=== PATIENT | female | born 1975 | race Caucasian/White ===

== ENCOUNTER → 2020-09-06 14:37 | Outpatient (BNVA) | payer OTHER, SELFPAY | PROVIDERS: Family Provider Family Medicine; PCP Family Medicine; Visit Provider Nurse Practitioner Women's Health | DX: N85.4 Malposition of uterus (principal); R10.2 Pelvic and perineal pain; G89.29 Other chronic pain; E66.01 Morbid (severe) obesity due to excess calories | CPT/HCPCS: 76830 ==

== ENCOUNTER 2020-09-26 08:46 | Outpatient (CLI) | payer OTHER, SELFPAY ==
--- NOTE | 2020-09-26 09:00 | MM_ITS ---
WS: [id number] BILATERAL SCREENING DIGITAL MAMMOGRAM WITH CAD HISTORY: Z12.39 - Encounter for other screening for malignant neoplasm of breast COMPARISON: 07/02/2017 Bilateral CC and MLO views submitted. Computer aided detection analyzed. Breast composition: The breasts are almost entirely fatty. No suspicious masses, microcalcifications or architectural distortion. Stable lobulated nodule since 2017 in the central inferior RIGHT breast. MM/[place] [id number] IMPRESSION: BI-RADS: 2-Benign FOLLOW UP: 1 Year Follow-up
== END 2020-09-26 08:47 | disposition home or self-care (01) ==
LOC: RADSHAW 08:49
PROVIDERS: Family Provider Family Medicine; PCP Family Medicine; Visit Provider Nurse Practitioner Women's Health
DX: Z12.31 Encounter for screening mammogram for malignant neoplasm of breast (principal)
CPT/HCPCS: 77067

== ENCOUNTER → 2021-10-15 09:10 | Outpatient (BNVA) | payer OTHER, SELFPAY | PROVIDERS: Family Provider Family Medicine; PCP Family Medicine; Visit Provider Nurse Practitioner Women's Health | DX: Z01.419 Encounter for gynecological examination (general) (routine) without abnormal findings (principal); Z30.41 Encounter for surveillance of contraceptive pills; R10.2 Pelvic and perineal pain; G89.29 Other chronic pain | CPT/HCPCS: 87624 ==

== ENCOUNTER → 2022-12-07 09:37 | Outpatient (BNVA) | payer OTHER, SELFPAY | PROVIDERS: Family Provider Family Medicine; PCP Family Medicine; Visit Provider Family Medicine | DX: E53.8 Deficiency of other specified B group vitamins (principal); E03.9 Hypothyroidism, unspecified; Z13.220 Encounter for screening for lipoid disorders; E11.9 Type 2 diabetes mellitus without complications; Z51.81 Encounter for therapeutic drug level monitoring; I10 Essential (primary) hypertension; E66.01 Morbid (severe) obesity due to excess calories | CPT/HCPCS: 80053; 80061; 82607; 83036; 84439; 84443; 85025 ==

== ENCOUNTER → 2022-12-14 08:17 | Outpatient (BNVA) | payer OTHER, SELFPAY | PROVIDERS: Family Provider Family Medicine; PCP Family Medicine; Visit Provider Family Medicine | DX: E11.9 Type 2 diabetes mellitus without complications (principal) | CPT/HCPCS: 83036 ==

== ENCOUNTER 2023-03-02 08:26 | Outpatient (CLI) | payer OTHER, SELFPAY ==
--- NOTE | 2023-03-02 09:11 | MM_ITS ---
WS: [id number] VIEWS: MLO and CC views both breasts. 3D digital tomosynthesis is also included in this exam. Comparison made with prior exam of 07/02/2017, 09/26/2020,. Findings: A new 4 mm smoothly marginated ovoid nodule is noted in the central anterior left breast almost direc tly behind the nipple. No architectural distortion or suspicious calcification. The right breast is u nchanged. Regional ultrasound and magnification compression spot images are suggested for further elsy luation of the left breast.The breasts are almost entirely fatty. MM/[place] [id number] Impression: BI-RADS: 0-Incomplete: Need additional imaging evaluation FOLLOW-UP: See Report This mammogram was also analyzed by the Computer Aided Detection System [employer].
== END 2023-03-02 08:27 | disposition home or self-care (01) ==
LOC: MOBLMAM 08:33 → RAD 09:08
PROVIDERS: Family Provider Family Medicine; PCP Family Medicine; Visit Provider Family Medicine
DX: Z12.31 Encounter for screening mammogram for malignant neoplasm of breast (principal)
CPT/HCPCS: 77063; 77067

== ENCOUNTER 2023-03-29 12:31 | Outpatient (CLI) | payer OTHER, SELFPAY ==
--- NOTE | 2023-03-29 13:15 | MM_ITS ---
WS: [id number] LEFT 3D TOMOSYNTHESIS DIGITAL MAMMOGRAPHY WITH CAD CLINICAL INFORMATION: LT BR ABNORMAL MAMMO HISTORY: Additional views COMPARISON: 03/02/2023 TECHNIQUE: 3 views of the left breast were obtained. FINDINGS: Scattered fibroglandular densities of the left breast. Previously described 4 mm nodule subareolar is unchanged in appearance. Ultrasound described below. ULTRASOUND BREAST LEFT TECHNIQUE: Ultrasound left breast focused area of concern. CLINICAL INFORMATION: LT BR ABNORMAL MAMMO FINDINGS: Ultrasound left breast posterior to the areola. No suspicious cystic or solid lesions. Normal underly ing parenchymal tissue. No suspicious lesions to target for biopsy. Recommend return to annual screen ing mammography. IMPRESSION: MM/[place] [id number] BI-RADS: 2-Benign FOLLOW UP: 1 Year Follow-up Recommend return to annual screening mammography.
== END 2023-03-29 12:32 | disposition home or self-care (01) ==
PROVIDERS: Family Provider Family Medicine; PCP Family Medicine; Visit Provider Nurse Practitioner Women's Health
DX: R92.8 Other abnormal and inconclusive findings on diagnostic imaging of breast (principal)
CPT/HCPCS: 76642; 77061; G0279

== ENCOUNTER → 2023-10-07 12:02 | Outpatient (BNVA) | payer OTHER, SELFPAY | PROVIDERS: Family Provider Family Medicine; PCP Family Medicine; Visit Provider Family Medicine | DX: Z51.81 Encounter for therapeutic drug level monitoring (principal); E11.9 Type 2 diabetes mellitus without complications; Z13.220 Encounter for screening for lipoid disorders; E53.8 Deficiency of other specified B group vitamins; E03.9 Hypothyroidism, unspecified | CPT/HCPCS: 80053; 80061; 82607; 83036; 84439; 84443; 85025 ==

== ENCOUNTER → 2024-01-04 11:49 | Outpatient (BNVA) | payer OTHER, SELFPAY | PROVIDERS: Family Provider Family Medicine; PCP Family Medicine; Visit Provider Family Medicine | DX: E11.9 Type 2 diabetes mellitus without complications (principal); Z51.81 Encounter for therapeutic drug level monitoring; E03.9 Hypothyroidism, unspecified; I10 Essential (primary) hypertension | CPT/HCPCS: 80053; 83036; 85025 ==

== ENCOUNTER → 2024-02-09 11:31 | Outpatient (BNVA) | payer OTHER, SELFPAY | PROVIDERS: Family Provider Family Medicine; PCP Family Medicine; Visit Provider Nurse Practitioner Women's Health | DX: R10.2 Pelvic and perineal pain (principal); G89.29 Other chronic pain; Z30.9 Encounter for contraceptive management, unspecified; E66.01 Morbid (severe) obesity due to excess calories; Z12.4 Encounter for screening for malignant neoplasm of cervix; Z01.419 Encounter for gynecological examination (general) (routine) without abnormal findings; Z30.41 Encounter for surveillance of contraceptive pills; N95.1 Menopausal and female climacteric states | CPT/HCPCS: 87624 ==

== ENCOUNTER 2024-03-21 08:29 | Outpatient (CLI) | payer OTHER, SELFPAY ==
--- NOTE | 2024-03-21 09:00 | US_ITS ---
WS: [id number] US transvaginal [id number] HISTORY: E66.01 - Morbid (severe) obesity due to excess calories COMPARISON: 09/06/2020 Uterus: 8.3 cm x 3.8 cm x 4.1 cm. Anteverted uterus. The entire uterine fundus is not identified well because of body habitus. There is a calcification noted in the posterior myometrium. The visualized uterus appears slightly globular. No mass identified but the endometrium is poorly visualized. Endometrium: 0.5 cm. Poor evaluation of the endometrium. There is a large amount of shadowing obscuri ng the endometrium. Neither ovary is identified. No adnexal mass. No free fluid in the cul-de-sac. US/US transvaginal [id number] IMPRESSION: 1. Technically very difficult and limited evaluation of the uterus. 2. The entire uterus and endometrium are not well visualized. Cannot exclude e ndometrial abnormality. 3. Neither ovary identified.
== END 2024-03-21 08:30 | disposition home or self-care (01) ==
PROVIDERS: Family Provider Family Medicine; PCP Family Medicine; Visit Provider Nurse Practitioner Women's Health
DX: R10.2 Pelvic and perineal pain (principal); E66.01 Morbid (severe) obesity due to excess calories; N85.5 Inversion of uterus
CPT/HCPCS: 76830

== ENCOUNTER → 2024-04-25 08:40 | Outpatient (BNVA) | payer OTHER, SELFPAY | PROVIDERS: Family Provider Family Medicine; PCP Family Medicine; Visit Provider Family Medicine | DX: Z30.41 Encounter for surveillance of contraceptive pills (principal); E11.9 Type 2 diabetes mellitus without complications; I10 Essential (primary) hypertension | CPT/HCPCS: 80053; 83036; 85025 ==

== ENCOUNTER → 2024-07-25 10:56 | Outpatient (BNVA) | payer OTHER, SELFPAY | PROVIDERS: Family Provider Family Medicine; PCP Family Medicine; Visit Provider Family Medicine | DX: E55.9 Vitamin D deficiency, unspecified (principal); E03.9 Hypothyroidism, unspecified; E11.69 Type 2 diabetes mellitus with other specified complication; E66.01 Morbid (severe) obesity due to excess calories; Z13.220 Encounter for screening for lipoid disorders; E53.8 Deficiency of other specified B group vitamins | CPT/HCPCS: 80061; 82306; 82607; 83036; 84439; 84443 ==

== ENCOUNTER → 2025-02-14 09:28 | Outpatient (BNVA) | payer OTHER, MEDICAID, SELFPAY | PROVIDERS: Family Provider Family Medicine; PCP Family Medicine; Visit Provider Nurse Practitioner Women's Health | DX: Z01.419 Encounter for gynecological examination (general) (routine) without abnormal findings (principal) | CPT/HCPCS: 87624 ==

== ENCOUNTER 2025-02-15 08:42 | Outpatient (CLI) | payer OTHER, MEDICAID, SELFPAY ==
--- NOTE | 2025-02-15 09:00 | MM_ITS ---
WS: [id number] BILATERAL SCREENING DIGITAL TOMOSYNTHESIS MAMMOGRAM WITH CAD HISTORY: Z12.31 - Encounter for screening mammogram for malignant ... COMPARISON: 03/29/2023, 03/02/2023, 09/26/2020 Bilateral CC and MLO views with tomosynthesis and synthetic mammography submitted. Computer aided detection analyzed. Breast composition: The breasts are almost entirely fatty. No suspicious masses, microcalcifications or architectural distortion. Stable 6 mm nodule central to the LEFT breast nipple. This nodule has been present since 2022 with minimal increase in size. No suspicious grouping of calcification. MM/MM scr tomosynthesis [id number] IMPRESSION: BI-RADS: 2 - Benign. FOLLOW UP: 1 Year Follow-up
== END 2025-02-15 08:43 | disposition home or self-care (01) ==
LOC: RAD 08:43
PROVIDERS: PCP Family Medicine; Visit Provider Nurse Practitioner Women's Health
DX: Z12.31 Encounter for screening mammogram for malignant neoplasm of breast (principal); R92.313 Mammographic fatty tissue density, bilateral breasts; N63.20 Unspecified lump in the left breast, unspecified quadrant
CPT/HCPCS: 77063; 77067

== ENCOUNTER → 2025-02-19 09:31 | Outpatient (BNVA) | payer OTHER, MEDICAID, SELFPAY | PROVIDERS: PCP Family Medicine; Visit Provider Family Medicine | DX: Z51.81 Encounter for therapeutic drug level monitoring (principal); Z13.6 Encounter for screening for cardiovascular disorders; E03.9 Hypothyroidism, unspecified; E55.9 Vitamin D deficiency, unspecified; E11.9 Type 2 diabetes mellitus without complications | CPT/HCPCS: 80053; 80061; 82306; 83036; 84439; 84443; 85025 ==

== ENCOUNTER → 2025-05-22 15:19 | Outpatient (BNVA) | payer OTHER, MEDICAID, SELFPAY | PROVIDERS: PCP Family Medicine; Visit Provider Family Medicine | DX: E55.9 Vitamin D deficiency, unspecified (principal); Z51.81 Encounter for therapeutic drug level monitoring; E03.9 Hypothyroidism, unspecified; E11.9 Type 2 diabetes mellitus without complications | CPT/HCPCS: 80053; 82306; 83036; 84439; 84443; 85025 ==